=== PATIENT | female | born 1950 | race Caucasian/White ===

== ENCOUNTER → 2016-11-11 | Outpatient (CLI) | payer MEDICARE ==
[~2016-11-11] MED LIST: ASPI81TA5 PO; BIOT10TA PO; CLON.2 PO; ESTR42.5V VAGINAL; FENO160T PO; GABA400C5 PO; HYDR-3800 PO; LACTTAB5 PO; MULT-65 PO; SIME1CAP14 PO; SKEL800T21 PO; TYLETAB34 PO; VALS1TAB65 PO; VITA100036 PO; VITA200C3 PO; ZANT150T2 PO; [UNRECOGNIZED DRUG - CODE] PO
[2016-11-11 10:18] LABS: AUTOMATED NEUTROPHIL # 3.5 TH/MM3 (1.8-7.7); BASOPHIL # 0.1 TH/MM3 (0-0.2); BASOPHIL % 1.1 % (0.0-2.0); EOSINOPHIL # 0.8 TH/MM3 (0-0.4); EOSINOPHIL % 11.1 % (0.0-4.0); HEMATOCRIT 36.6 % (35.0-46.0); HEMO FLAGS DIFF FINAL; LYMPH % 30.4 % (9.0-44.0); LYMPHOCYTE # 2.2 TH/MM3 (1.0-4.8); MEAN CELL VOLUME 87.5 FL (80.0-100.0); MEAN CORPUSCULAR HEMOGLOBIN 29.6 PG (27.0-34.0); MEAN CORPUSCULAR HGB CONC 33.9 % (32.0-36.0); MONO % 9.5 % (0.0-8.0); NEUT % 47.9 % (16.0-70.0); PLATELET COUNT 288 TH/MM3 (150-450); RED BLOOD COUNT 4.18 MIL/MM3 (4.00-5.30); RED CELL DISTRIBUTION WIDTH 12.9 % (11.6-17.2); WHITE BLOOD COUNT 7.3 TH/MM3 (4.0-11.0)
[2016-11-11 10:39] LABS: ANION GAP 6 MEQ/L (5-15); BLOOD UREA NITROGEN 25 MG/DL (7-18); CHLORIDE 107 MEQ/L (98-107); GLOMERULAR FILTRATION RATE 57 ML/MIN (>89); GLUCOSE,FASTING 115 MG/DL (74-99); POTASSIUM 4.5 MEQ/L (3.5-5.1); SODIUM (NA) 139 MEQ/L (136-145)
[2016-11-11 11:15] LABS: ALKALINE PHOSPHATASE 48 U/L (45-117); ALT (GPT) 28 U/L (10-53); AST (GOT) 20 U/L (15-37); TOTAL BILIRUBIN ADULT 0.5 MG/DL (0.2-1.0)
[2016-11-11 12:05] LABS: BLOOD, URINE NEG (NEG); COMMENT (UR) CULT NOT INDICATED; CULTURE IF INDICATED CULT NOT INDICATED; GLUCOSE,URINE NEG (NEG); HYALINE CAST, URINE 1 /lpf (RARE); KETONE, URINE NEG (NEG); MUCUS URINE FEW /lpf (OCC); NITRITE,URINE NEG (NEG); SQUAMOUS EPITHELIAL CELL URINE <1 /hpf (0-5); URINE COLOR YELLOW (YELLW/STRAW)
--- NOTE | 2016-11-11 13:56 | EKG ---
Date Performed: 11/11/2016 Time Performed: 10:02:52 PTAGE: 66 years EKG: Sinus rhythm NORMAL ECG PREVIOUS TRACING : 12/15/2015 14.08 Compared to prior tracing no significant change DOCTOR: Mu Pinzon Interpretating Date/Time 11/11/2016 13:54:43
== END ==
LOC: CPRE 09:36
PROVIDERS: ATTEND Obstetrics & Gynecology Gynecology
DX: Z01.810 Encounter for preprocedural cardiovascular examination (principal); Z01.812 Encounter for preprocedural laboratory examination; N94.10 Unspecified dyspareunia
CPT/HCPCS: 36415; 80053; 81001; 85025; 93005

== ENCOUNTER → 2016-11-17 | Day surgery (SDC) | payer MEDICARE ==
--- NOTE | 2016-11-11 12:21 | MH ---
cc: BRAEDEN MATAMOROS MD, JOHN DATE OF ADMISSION: 11/17/2016 DATE OF : 1950 ADMITTING DIAGNOSIS: The patient is scheduled for admission on 11/17 for revision of perineal body. HISTORY: The patient is a 65-year-old white female 1, para 1 who has relatively recently had a laparoscopic-assisted vaginal hysterectomy and anterior posterior repair. Subsequently she has had pain with intercourse with pain at the vaginal introitus. 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 She has tried vaginal estrogen treatments and relaxation techniques but still has issues with pain. The pain is located the introitus 10/10 severity quality is tearing, this has been occurring since her surgery 2015. She opted for surgical revision. PAST SURGICAL HISTORY: The patient's medical history notable for fibromyalgia, Osteoarthritis History of Aceveod's palsy Hyperlipidemia Hypertension Gastroesophageal reflux disease. 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 , good social support. ALLERGIES CLONIDINE LISINOPRIL SULFA MEDICATIONS Gabapentin 400 mg b.i.d. Skelaxin 800 mg daily. Valsartan 150 mg p.o. b.i.d. Adenosine 50 mg t.i.d. FAMILY HISTORY Contributory OBSTETRICAL HISTORY One vaginal delivery. REVIEW OF SYSTEMS The of systems as above. No chest pain, orthopnea, PND. No nausea, fever, chills. No vaginal bleed or discharge, major issues with pain with intercourse as noted above. PHYSICAL EXAMINATION: IN GENERAL: On examination she is afebrile. VITAL SIGNS: Vital signs stable blood pressure is 120/70, height is 5.7, weight 156, BMI is 24. IN GENERAL: Patient is alert and oriented in stress no sign of cognitive function depression. HEAD, EYES, EARS, NOSE, AND THROAT: Within normal limits. NECK: The neck is supple. No JVD. CHEST: The chest is clear. HEART: Regular rate and rhythm. ABDOMEN: soft, nontender. No hepatosplenomegaly. No costovertebral angle tenderness. PELVIC: The pelvic exam shows Aa -1, Ap is -2 point C is -8. Genital hiatus is 5. Perineal body is 2 with skin bridge and tenderness. Total vaginal length is 10, levator spasm is noted. Further exam under anesthesia. EXTREMITIES: Normal skin, no rashes and nonfocal. LABORATORY FINDINGS: No deep venous thrombosis signs. ASSESSMENT Patient with dyspareunia with entry with changes the perineum suggestive of skin bridge of the peritoneum. Also the levator spasm noted. PLAN: At this point we discussed options for management treatment. She is aware that there is at least a 20% chance that the pain is not resolved by the surgery and levator spasm may actually be worsened. She is aware of possibly of bladder or bowel dysfunction. She is aware of issues regarding pain, bleeding, infection, sexual dysfunction, as well as exacerbation of her fibromyalgia symptoms. At this point we anticipate outpatient procedure. We will use DVT prophylaxis with sequential compression device, Ancef 2 grams IV for antibiotic prophylaxis. Anticipate outpatient procedure. MD CHANDNI Guerrero/blake /11:14 AM /11:51 AM
[~2016-11-17] VITALS: Ht 171.4 cm; Wt 75.2 kg
[~2016-11-17] MED LIST changes: +ACETAMINOPHEN 1000 MG/100 ML 100 ML IV ONE; +ARTIFICIAL TEARS OPTH OINT 3.5 APPLIC/3.5 GM TUBO ONE; +CHLORHEXIDINE GLUCONATE 2 % 1 PACK (2 CLOTHS) TOPICAL PRN; +DEXAMETHASONE SOD PHOS 4 MG/ML VIAL ONE; +DO NOT ADM ANY ANTICOAGULANT DRUGS PRN; +ESTROGENS CONJUGATED VAG CREA 15 APPL/30 GM TUBE ONE; +FAMOTIDINE 20 MG/2 ML VIAL ONE; +FUROSEMIDE 100 MG/10 ML VIAL ONE; +INSULIN HUMAN REGULAR 1,000 UNITS/10 ML VIAL SQ PRN; +KETOROLAC TROMETHAMINE 30 MG/ML (IVP) VIAL IV PUSH ONE; +KETOROLAC TROMETHAMINE 30 MG/ML (IVP) VIAL IV PUSH PRN; +LACTATED RINGER'S 1000 ML IV PRN; +LIDOCAINE 1.5%/EPINEPHrine 1:200,000 PF SOLN 10ML SDV INFIL ONE; +LIDOCAINE HCL 1% PF 5 ML AMPULE OTHER ONE; +METOPROLOL TARTRATE 25 MG TAB PO PRN; +MIDAZOLAM HCL 2 MG/2 ML VIAL ONE; +ONDANSETRON HCL 4 MG/2 ML VIAL IV PUSH ONE; +ONDANSETRON HCL 4 MG/2 ML VIAL IV PUSH PRN; +PHENYLEPH/NS 1000 MCG/10 ML SYR IV ONE; +POVIDONE IODINE 5% (ANTISEPSIS KIT) 4 APPLICATIONS EACH NARE PRN; +PROPOFOL 200 MG/20 ML AMP IV ONE; +SODIUM CHLORID 0.9% 500 ML IV PRN; +ceFAZolin 2 GM PREMIX 50 ML IV SCH; +ceFAZolin INJ 1,000 MG VIAL IV ONE; +traMADol HCL 50 MG TAB PO PRN
--- NOTE | 2016-11-17 09:40 | MP ---
cc: BRAEDEN MATAMOROS MD, JOHN DATE OF SURGERY: 11/17/2016 PREOPERATIVE DIAGNOSES Dyspareunia with pain at the fourchette with skin bridge following prior vaginal surgery. POSTOPERATIVE DIAGNOSES Dyspareunia with pain at the fourchette with skin bridge following prior vaginal surgery. PROCEDURE Perineoplasty with advancement of vaginal mucosa and modified posterior repair. SURGEON Dr. Matamoros. ANESTHESIA Laryngeal mask. ESTIMATED BLOOD LOSS Less than 5 cc. URINE OUTPUT 200 cc. STRATEGIC COMMUNICATIONS SPECIALIST [place] Staff x2. FLUIDS 1000 cc crystalloid. FINDINGS External genitalia normal. POP-Q score: Aa is -1; Ap is -2; point C is -8; total vaginal length is 10; genital hiatus is 4; perineal body is 6 with 3 cm of skin bridge. Following the procedure the genital hiatus is 6, perineal body is 4. SPECIMENS None. COMPLICATIONS None. DISPOSITION Recovery room stable. COUNTS Needle and sponge counts correct. DRAINS Qureshi catheter. PROPHYLAXIS Antibiotic prophylaxis: Ancef 2 grams. DVT prophylaxis: Sequential compression device. Timeout procedure per protocol. SUMMARY OF INDICATION FOR PROCEDURE Patient with significant dyspareunia following prior vaginal repair. On exam she has significant levator spasm but also has a perineal skin bridge that is tender. The patient was given options and then tried estrogen therapy and dilators and decided to move to corrective surgical procedure. DETAILS OF PROCEDURE The patient was taken to the operating theatre, identifed, prepped and draped in a fashion appropriate for planned procedure. She was in dorsal lithotomy position with careful attention paid to placement of legs in stirrups to avoid undue stress to sensitive neurovascular structures. Above findings noted. Neurovascular integrity documented. Qureshi catheter was placed. The perineum was infiltrated with epinephrine and lidocaine solution. An incision was then made in the midline through the skin bridge. We then advanced vaginal mucosa without complication using a modified posterior repair technique. We then re-approximated the vaginal mucosa with the vestibule with a 3-0 Vicryl running suture on each side. Following the procedure the rectal exam was normal. The skin bridge was revised. The perineal body was down now to 4. The genital hiatus was increased to 6. The patient tolerated the procedure well and went to the recovery room in stable condition. MD CHANDNI Guerrero/RICK /8:55 AM /9:18 AM
[2016-11-17 10:15] VITALS: BP 120/62; PULSE 67; RESP 20; O2SAT 97
[2016-11-17 11:00] VITALS: TEMP 98
== END | disposition home or self-care (01) ==
LOC: HSDC 05:49
PROVIDERS: ATTEND Obstetrics & Gynecology Gynecology
DX: N94.10 Unspecified dyspareunia (principal); R10.2 Pelvic and perineal pain
CPT/HCPCS: 00400; 56810; J0131; J0690; J1100; J1885; J2250; J2370; J2405; J3010; J7120; J1940